=== PATIENT | male | born 1965 | race African-American/Black ===

== ENCOUNTER → 2018-06-03 | Outpatient (CLI) | payer BC ==
--- NOTE | 2018-06-03 23:55 | RAD ---
CHEST PA LATERAL CLINICAL INDICATION: Cough COMPARISON: None FINDINGS: Heart is normal in size. Mild central bilateral peribronchial wall thickening is seen. No focal consolidation. No pneumothorax or pleural effusion. Visualized bony thorax is within normal limits. IMPRESSION: Findings suggests atypical/viral infection/bronchitis. Electronically signed by: John Crandall DO (06/03/2018 11:51 PM) [facility]
== END | disposition home or self-care (01) ==
LOC: RAD 15:37
PROVIDERS: ATTEND Physician Assistant
DX: R05 Cough (principal)
CPT/HCPCS: 71046